=== PATIENT | female | born 2000 | race Caucasian/White ===

== ENCOUNTER 2022-01-30 15:46 | Emergency (ER) | payer BC, OTHER | END 2022-01-30 17:16 | disposition home or self-care (01) | LOC: LL.ED 15:46 | DX: R07.2 Precordial pain (principal); M25.532 Pain in left wrist; M25.561 Pain in right knee | CPT/HCPCS: 71120; 73100-LT; 73562-RT; 99283; 99283-25 ==

== ENCOUNTER 2024-02-21 08:04 | Observation (INO) | payer BC, OTHER ==
[2024-02-21] MEDS ORDERED: Sodium Chloride 0.9% 10 ML Syringe FLUSH PRN (08:20)
[2024-02-21] MEDS: Sodium Chloride 0.9% 1,000 ML IV ONE (08:24)
[2024-02-21 08:29] LABS: BASOPHILS ABSOLUTE AUTO 0.05 K/uL (0.00-0.20); BASOPHILS PERCENT AUTO 0.4 % (0.0-2.0); EOSINOPHILS ABSOLUTE AUTO 0.36 K/uL (0.00-0.50); HEMATOCRIT 44.6 % (34.0-46.0); HEMOGLOBIN 15.2 g/dL (11.7-15.5); LYMPHOCYTES ABSOLUTE AUTO 2.54 K/uL (0.50-3.50); LYMPHOCYTES PERCENT AUTO 21.1 % (10.0-50.0); MEAN CORPUSCULAR HEMOGLOBIN 29.9 pg (28.2-33.3); MEAN CORPUSCULAR HGB CONC 34.1 g/dL (31.7-36.0); MEAN CORPUSCULAR VOLUME 87.8 fL (84.0-98.0); MONOCYTES PERCENT AUTO 7.5 % (2.0-14.0); PLATELET COUNT,PLT 288 K/uL (150-350); RED BLOOD CELL COUNT 5.08 M/uL (3.77-5.09); RED CELL DISTRIBUTION WIDTH 13.1 % (11.2-14.1); WHITE BLOOD CELL COUNT,WBC 12.1 K/uL (4.0-10.2)
[2024-02-21 08:48] LABS: ALANINE AMINOTRANSFERASE,ALT 55 U/L (12-78); ALKALINE PHOSPHATASE 96 IU/L (46-116); AMYLASE 32 U/L (25-115); ANION GAP 7.6 meq/L (7-15); ASPARTATE AMNIOTRANSFERASE,AST 30 U/L (15-37); BILIRUBIN TOTAL 0.4 mg/dL (0.2-1.0); BLOOD UREA NITROGEN,BUN 10 mg/dL (7-18); CALCIUM 9.4 mg/dL (8.5-10.1); CARBON DIOXIDE,CO2 30.4 mmol/L (21.0-32.0); CHLORIDE,CL 106 mmol/L (98-107); CREATININE 1.16 mg/dL (0.51-1.17); GLUCOSE RANDOM 63 mg/dL (70-99); LIPASE 32 U/L (16-77); POTASSIUM,K 3.9 mmol/L (3.5-5.1); PROTEIN TOTAL,TP 7.9 g/dL (6.4-8.2); SODIUM,NA 144 mmol/L (136-145)
[2024-02-21 08:49] LABS: ESTIMATED GFR 68 mL/min (>=60)
[2024-02-21] MEDS ORDERED: Naloxone 0.4 MG/ML SDV IVPUSH PRN (08:50)
[2024-02-21] MEDS: Morphine 2 MG/ML SYRINGE IVPUSH ONE ×3 (08:53→09:56)
[2024-02-21] MEDS: Ondansetron 4 MG/2 ML SDV IVPUSH ONE (08:53)
[2024-02-21] MEDS: Iopamidol 612 MG/ML 100 ML Bottle IVPUSH STA (09:30)
[2024-02-21 09:52] LABS: APPEARANCE,URINE CLOUDY; BILIRUBIN,URINE NEGATIVE (NEGATIVE); COLOR,URINE YELLOW; GLUCOSE,URINE NEGATIVE (NEGATIVE); KETONES,URINE NEGATIVE (NEGATIVE); LEUKOCYTE ESTERASE,URINE SMALL (NEGATIVE); NITRITE,URINE POSITIVE (NEGATIVE); OCCULT BLOOD,URINE MODERATE (NEGATIVE); PROTEIN,URINE TRACE mg/dL (NEGATIVE); UROBILINOGEN,URINE 0.2 E.U./dL (0.2-1.0)
[2024-02-21] MEDS: Dextrose 5%-0.45% NaCl 1,000 ML IV SCH (09:52)
[2024-02-21 10:17] LABS: BACTERIA,URINE MANY /HPF (NONE TO FEW); RBC,URINE 50-75 /HPF; WBC,URINE 20-30 /HPF
[2024-02-21] MEDS ORDERED: Ondansetron 4 MG/2 ML SDV IVPUSH PRN (10:59)
[2024-02-21] MEDS: cefTRIAXone 1 GM in Sodium Chloride 0.9% 100 ML IV SCH (10:59)
[2024-02-21] MEDS ORDERED: NORETHINDRONE 0.35 MG PO SCH (11:15)
[2024-02-21] MEDS: Acetaminophen 500 MG Tab PO SCH (11:23)
[2024-02-21] MEDS: Ketorolac 15 MG/ML SDV IVPUSH SCH (11:25)
[2024-02-21] MEDS: Pantoprazole 40 MG Vial IVPUSH ONE (11:39)
[2024-02-21 18:38] VITALS: BP 104/64; PULSE 51
[2024-02-21] MEDS: traMADol 50 MG Tab PO PRN (19:50)
[2024-02-21] MEDS: Morphine 2 MG/ML SYRINGE IVPUSH PRN (19:51)
[2024-02-22 12:32] LABS: BASOPHILS ABSOLUTE AUTO 0.04 K/uL (0.00-0.20); BASOPHILS PERCENT AUTO 0.5 % (0.0-2.0); EOSINOPHILS ABSOLUTE AUTO 0.25 K/uL (0.00-0.50); EOSINOPHILS PERCENT AUTO 3.4 % (0.0-5.0); HEMATOCRIT 37.5 % (34.0-46.0); HEMOGLOBIN 12.3 g/dL (11.7-15.5); LYMPHOCYTES ABSOLUTE AUTO 3.13 K/uL (0.50-3.50); LYMPHOCYTES PERCENT AUTO 42.1 % (10.0-50.0); MEAN CORPUSCULAR HEMOGLOBIN 30.1 pg (28.2-33.3); MEAN CORPUSCULAR HGB CONC 32.8 g/dL (31.7-36.0); MEAN CORPUSCULAR VOLUME 91.7 fL (84.0-98.0); MONOCYTES ABSOLUTE AUTO 0.41 K/uL (0.00-1.00); MONOCYTES PERCENT AUTO 5.5 % (2.0-14.0); NEUTROPHILS PERCENT AUTO 48.5 % (45.0-80.0); PLATELET COUNT,PLT 208 K/uL (150-350); RED BLOOD CELL COUNT 4.09 M/uL (3.77-5.09); RED CELL DISTRIBUTION WIDTH 13.2 % (11.2-14.1); WHITE BLOOD CELL COUNT,WBC 7.4 K/uL (4.0-10.2)
[2024-02-22 12:33] LABS: ANION GAP 5.9 meq/L (7-15); CALCIUM 8.3 mg/dL (8.5-10.1); CARBON DIOXIDE,CO2 33.4 mmol/L (21.0-32.0); CREATININE 1.05 mg/dL (0.51-1.17); EST CRCL DRUG DOSING (CG) 69.52 mL/min; POTASSIUM,K 4.3 mmol/L (3.5-5.1)
[2024-02-22 12:34] LABS: AMPHETAMINES SCREEN, URINE NEGATIVE (NEGATIVE); BARBITURATE SCREEN,URINE NEGATIVE (NEGATIVE); BENZODIAZEPINES SCREEN,URINE NEGATIVE (NEGATIVE); BUPRENORPHINE SCREEN,URINE NEGATIVE (NEGATIVE); COCAINE METABOLITES,URINE NEGATIVE (NEGATIVE); EDDP,URINE SCREEN NEGATIVE (NEGATIVE); METHAMPHETAMINES SCREEN, URINE NEGATIVE (NEGATIVE); OXYCODONE SCREEN,URINE NEGATIVE (NEGATIVE); TCA SCREEN,URINE NEGATIVE (NEGATIVE); THC SCREEN,URINE 50 NG/ML NEGATIVE (NEGATIVE)
== END 2024-02-22 10:35 | disposition home or self-care (01) ==
LOC: LL.ED 08:04 → LL.MS 10:43
PROVIDERS: ADMIT Emergency Medicine; ATTEND Emergency Medicine
DX: N12 Tubulo-interstitial nephritis, not specified as acute or chronic (principal); N39.0 Urinary tract infection, site not specified; K21.9 Gastro-esophageal reflux disease without esophagitis; F17.210 Nicotine dependence, cigarettes, uncomplicated; Z79.899 Other long term (current) drug therapy
CPT/HCPCS: 36415; 74177; 80048; 80053; 80305-QW; 81001; 82150; 83605; 83690; 84703; 85025; 87086; 87088; 87186; 96361; 96374; 96375; 96376; 99223; 99238; 99285-25; A9270-GY; G0378; J0696; J1885; J2270; J2405; J2470; J3490; J7030; J7799; Q9967

== ENCOUNTER 2024-02-26 16:18 | Emergency (ER) | payer BC ==
[2024-02-26 17:00] LABS: APPEARANCE,URINE SLIGHTLY CLOUDY; BILIRUBIN,URINE NEGATIVE (NEGATIVE); COLOR,URINE YELLOW; GLUCOSE,URINE NEGATIVE (NEGATIVE); KETONES,URINE NEGATIVE (NEGATIVE); LEUKOCYTE ESTERASE,URINE SMALL (NEGATIVE); NITRITE,URINE NEGATIVE (NEGATIVE); OCCULT BLOOD,URINE TRACE-LYSED (NEGATIVE); PROTEIN,URINE NEGATIVE (NEGATIVE); UROBILINOGEN,URINE 0.2 E.U./dL (0.2-1.0)
[2024-02-26 17:09] LABS: BACTERIA,URINE FEW /HPF (NONE TO FEW); EPITHELIAL CELLS,URINE MODERATE /LPF; RBC,URINE 0-5 /HPF
== END 2024-02-26 17:15 | disposition home or self-care (01) ==
LOC: LL.ED 16:18
DX: L27.0 Generalized skin eruption due to drugs and medicaments taken internally (principal); N39.0 Urinary tract infection, site not specified; K21.9 Gastro-esophageal reflux disease without esophagitis; Z79.899 Other long term (current) drug therapy
CPT/HCPCS: 81001; 87086; 99283